=== PATIENT | female | born 1975 | race Caucasian/White ===

== ENCOUNTER 2023-11-08 17:02 | Emergency (ER) | payer MEDICAID ==
[~2023-11-08] VITALS: Ht 172.7 cm; Wt 77.0 kg
[2023-11-08 17:15] VITALS: TEMP 98.8; O2SAT 99
[2023-11-08 18:03] LABS: BASOPHILS % 0.6 % (0.0-2.0); EOSINOPHILS % 3.4 % (0.0-5.0); HEMATOCRIT. 35.7 % (36.0-48.0); HEMOGLOBIN. 12.2 g/dL (12.0-16.0); LYMPHOCYTES % 32.7 % (20.0-50.0); MEAN CORPUSCULAR HEMOGLOBIN 31.3 pg (28.0-32.0); MEAN CORPUSCULAR HGB CONC 34.3 g/dL (31.0-37.0); MEAN CORPUSCULAR VOLUME 91.3 fL (81.0-99.0); MEAN PLATELET VOLUME 6.8 fl (7.4-10.4); MONOCYTES % 8.2 % (2.0-8.0); NEUTROPHILS % 55.1 % (40.0-76.0); PLATELET 346 x1000/uL (130-400); RED CELL DISTRIBUTION WIDTH 13.8 % (11.6-14.6); WHITE BLOOD COUNT 5.5 x1000/uL (4.5-11.0)
[2023-11-08 18:13] LABS: CHLORIDE 105 mEq/L (98-107); POTASSIUM 3.7 mEq/L (3.5-5.1); SODIUM 139 mEq/L (136-145)
[2023-11-08 18:15] LABS: CALCIUM 9.1 mg/dL (8.7-10.4); CARBON DIOXIDE 25 mEq/L (21-32)
[2023-11-08 18:19] LABS: HCG SCREEN NEGATIVE
[2023-11-08 18:20] LABS: CREATININE 0.8 mg/dL (0.6-1.0); GLUCOSE 73 mg/dL (70-105); UREA NITROGEN BLOOD 6 mg/dL (9-23)
[2023-11-08 18:22] LABS: ALANINE AMINOTRANSFERASE 11 IU/L (10-49); ALBUMIN 4.3 g/dL (3.2-4.8); ASPARTATE AMINOTRANSFERASE 15 IU/L (<34); BILIRUBIN TOTAL 0.2 mg/dL (0.1-1.0); PROTEIN TOTAL 6.6 g/dL (6.0-8.3)
[2023-11-08 18:24] LABS: BILIRUBIN DIRECT < 0.1 mg/dL (<=3.0)
[2023-11-08 19:43] LABS: TROPONIN I HIGH SENSITIVITY < 4 ng/L (3.0-34)
[2023-11-08] MEDS: ONDANSETRON HCL 4MG/2ML INJ IV STA (19:50)
[2023-11-08] MEDS: KETOROLAC 15MG/ML VIAL IV ONE (19:50)
[2023-11-08] MEDS: SODIUM CHLORIDE 0.9% 1,000 ML IV ONE (19:50)
[2023-11-08] MEDS: PANTOPRAZOLE SODIUM 40 MG/VIAL IV ONE (19:50)
[2023-11-08 19:52] LABS: INR 0.9; PARTIAL THROMBOPLASTIN TIME 25.8 sec (23.4-31.0); PROTHROMBIN TIME 10.1 sec (9.6-11.0)
[2023-11-08 19:57] LABS: CLARITY URINE CLEAR (CLEAR); COLOR URINE YELLOW (YELLOW); GLUCOSE URINE NEGATIVE (NEGATIVE); KETONES URINE TRACE (NEGATIVE); LEUKOCYTE ESTERASE URINE TRACE (NEGATIVE); NITRITE URINE NEGATIVE (NEGATIVE); OCCULT BLOOD URINE NEGATIVE (NEGATIVE); PH URINE 6.5 (4.5-8.0); PROTEIN URINE NEGATIVE (NEGATIVE); SPECIFIC GRAVITY URINE 1.023 (1.005-1.030)
[2023-11-08] MEDS: DIPHENHYDRAMINE 50MG/ML VIAL IV ONE (20:07)
[2023-11-08 20:08] VITALS: BP 115/65; PULSE 101; RESP 25
[2023-11-08 20:43] LABS: BACTERIA URINE 2+; RBC URINE NONE SEEN /hpf (0-2); SQUAMOUS EPITHELIAL CELL URINE 1+ /lpf (RARE/1+); WBC URINE 0-2 /hpf (0-2)
[2023-11-08 20:44] LABS: MUCUS URINE 2+ /lpf (< = 2+)
[2023-11-08] MEDS ORDERED: NITR-87 MT (20:47)
[2023-11-08] MEDS ORDERED: ONDA4TAB11 PO (20:47)
[2023-11-08] MEDS ORDERED: TOPUD MT (20:47)
[2023-11-08] MEDS ORDERED: DIPH25CA83 PO (20:50)
[2023-11-08] MEDS: DIPHENHYDRAMINE 25MG CAPSULE PO ONE (21:03)
== END 2023-11-08 21:14 | disposition home or self-care (01) ==
LOC: ER 17:02
DX: R10.32 Left lower quadrant pain (principal); J45.909 Unspecified asthma, uncomplicated; Z88.6 Allergy status to analgesic agent; Z88.5 Allergy status to narcotic agent
CPT/HCPCS: 80076; 80048; 81003; 84703; 83690; 85025; 85610; 85730; 84484; 36415; 71045; 74176; 93005; 96365; 96375; 99285; Q0163; J1200; J1885; J2405; C9113; J7030; Z7610 ×2

== ENCOUNTER 2023-11-17 14:40 | Emergency (ER) | payer OTHER ==
[~2023-11-17] VITALS: Ht 167.6 cm; Wt 66.0 kg
[~2023-11-17 14:40] MED LIST: DIPH25CA83 PO; NITR-87 MT; ONDA4TAB11 PO; TOPUD MT
[2023-11-17 14:44] VITALS: O2SAT 98
[2023-11-17 15:06] VITALS: TEMP 98
[2023-11-17] MEDS: EPINEPHRINE 1:1000 1 MG/ML AMP SUBCUT ONE (15:12)
[2023-11-17] MEDS: METHYLPREDNISOLONE SOD SUCC 125MG/2ML (ACT-O-VIAL) IV ONE (15:14)
[2023-11-17] MEDS: FAMOTIDINE 20MG/2ML VIAL IV ONE (15:14)
[2023-11-17 16:18] LABS: HCG SCREEN NEGATIVE
[2023-11-17] MEDS ORDERED: DIPHENHYDRAMINE 25MG CAPSULE PO ONE (17:30)
[2023-11-17 17:34] VITALS: BP 112/64; PULSE 83; RESP 16
== END 2023-11-17 17:35 | disposition left against medical advice (07) ==
LOC: ER 14:40
DX: T78.2XXA Anaphylactic shock, unspecified, initial encounter (principal); J45.909 Unspecified asthma, uncomplicated; F31.9 Bipolar disorder, unspecified; Z79.899 Other long term (current) drug therapy; X58.XXXA Exposure to other specified factors, initial encounter
CPT/HCPCS: 84703; 96372; 96374; 96375; 99284; J3490 ×2; J2919; Z7610

== ENCOUNTER 2023-11-24 09:37 | Emergency (ER) | payer OTHER ==
[~2023-11-24] VITALS: Ht 170.2 cm; Wt 74.0 kg
[2023-11-24 09:42] VITALS: O2SAT 99
[2023-11-24] MEDS: KETOROLAC 15MG/ML VIAL IV ONE ×2 (10:51→14:31)
[2023-11-24 10:54] LABS: BASOPHILS % 0.2 % (0.0-2.0); EOSINOPHILS % 0.7 % (0.0-5.0); HEMATOCRIT. 35.9 % (36.0-48.0); HEMOGLOBIN. 12.2 g/dL (12.0-16.0); LYMPHOCYTES % 7.1 % (20.0-50.0); MEAN CORPUSCULAR HGB CONC 33.9 g/dL (31.0-37.0); MEAN CORPUSCULAR VOLUME 91.4 fL (81.0-99.0); MEAN PLATELET VOLUME 6.9 fl (7.4-10.4); MONOCYTES % 4.6 % (2.0-8.0); NEUTROPHILS % 87.4 % (40.0-76.0); PLATELET 303 x1000/uL (130-400); RED BLOOD CELL COUNT 3.93 mill/uL (4.2-5.4); RED CELL DISTRIBUTION WIDTH 14.5 % (11.6-14.6); WHITE BLOOD COUNT 9.6 x1000/uL (4.5-11.0)
[2023-11-24 10:58] LABS: CLARITY URINE CLEAR (CLEAR); COLOR URINE YELLOW (YELLOW); GLUCOSE URINE NEGATIVE (NEGATIVE); KETONES URINE NEGATIVE (NEGATIVE); LEUKOCYTE ESTERASE URINE NEGATIVE (NEGATIVE); NITRITE URINE NEGATIVE (NEGATIVE); OCCULT BLOOD URINE TRACE (NEGATIVE); PH URINE 5.5 (4.5-8.0); PROTEIN URINE NEGATIVE (NEGATIVE); SPECIFIC GRAVITY URINE 1.006 (1.005-1.030); UROBILINOGEN URINE 0.2 E.U./dL (0.2-1.0)
[2023-11-24 11:00] LABS: CHLORIDE 104 mEq/L (98-107); HCG SCREEN NEGATIVE; SODIUM 137 mEq/L (136-145)
[2023-11-24 11:01] LABS: CALCIUM 9.1 mg/dL (8.7-10.4); CARBON DIOXIDE 26 mEq/L (21-32)
[2023-11-24 11:06] LABS: CREATININE 0.8 mg/dL (0.6-1.0); GLUCOSE 90 mg/dL (70-105); UREA NITROGEN BLOOD 13 mg/dL (9-23)
[2023-11-24 11:08] LABS: ALANINE AMINOTRANSFERASE 10 IU/L (10-49); ALBUMIN 4.3 g/dL (3.2-4.8); ASPARTATE AMINOTRANSFERASE 15 IU/L (<34); BACTERIA URINE FEW; BILIRUBIN DIRECT 0.1 mg/dL (<=3.0); RBC URINE 0-2 /hpf (0-2); SQUAMOUS EPITHELIAL CELL URINE 1+ /lpf (RARE/1+); YEAST URINE NONE SEEN
[2023-11-24 11:09] LABS: BILIRUBIN TOTAL 0.5 mg/dL (0.1-1.0); PROTEIN TOTAL 6.7 g/dL (6.0-8.3)
[2023-11-24] MEDS: ONDANSETRON HCL 4MG/2ML INJ IV ONE (11:35)
[2023-11-24] MEDS: DIPHENHYDRAMINE 50MG/ML VIAL IV ONE (11:55)
[2023-11-24 15:20] VITALS: BP 98/60; PULSE 54; RESP 16; TEMP 97.9
== END 2023-11-24 15:22 | disposition home or self-care (01) ==
LOC: ER 09:37
DX: R10.12 Left upper quadrant pain (principal); J45.909 Unspecified asthma, uncomplicated; Z88.6 Allergy status to analgesic agent; Z88.5 Allergy status to narcotic agent; Z98.890 Other specified postprocedural states
CPT/HCPCS: 80076; 80048; 81003; 84703; 85025; 36415; 74176; 96374; 96375; 99285; J1200; J1885; J2405; Z7610 ×4

== ENCOUNTER 2023-11-30 00:22 | Emergency (ER) | payer OTHER ==
[~2023-11-30] VITALS: Ht 165.1 cm; Wt 80.0 kg
[2023-11-30 00:23] VITALS: O2SAT 99
[2023-11-30] MEDS ORDERED: IPRATROPIUM BROMIDE (0.02%) 0.5MG/2.5ML NEB HHN STA (00:23)
[2023-11-30] MEDS: METHYLPREDNISOLONE SOD SUCC 125MG/2ML (ACT-O-VIAL) IV STA (01:06)
[2023-11-30] MEDS: MAGNESIUM 1 G PREMIX 100 ML IV ONE (01:08)
[2023-11-30 01:23] LABS: BASOPHILS % 1.2 % (0.0-2.0); EOSINOPHILS % 3.1 % (0.0-5.0); HEMATOCRIT. 34.9 % (36.0-48.0); HEMOGLOBIN. 11.9 g/dL (12.0-16.0); LYMPHOCYTES % 27.2 % (20.0-50.0); MEAN CORPUSCULAR HEMOGLOBIN 30.7 pg (28.0-32.0); MEAN CORPUSCULAR HGB CONC 34.1 g/dL (31.0-37.0); MEAN PLATELET VOLUME 6.8 fl (7.4-10.4); MONOCYTES % 8.6 % (2.0-8.0); NEUTROPHILS % 59.9 % (40.0-76.0); PLATELET 307 x1000/uL (130-400); RED BLOOD CELL COUNT 3.88 mill/uL (4.2-5.4); RED CELL DISTRIBUTION WIDTH 14.7 % (11.6-14.6); WHITE BLOOD COUNT 8.1 x1000/uL (4.5-11.0)
[2023-11-30] MEDS: DIPHENHYDRAMINE 25MG CAPSULE PO NR (01:30)
[2023-11-30 01:31] LABS: PARTIAL THROMBOPLASTIN TIME 27.6 sec (23.4-31.0); PROTHROMBIN TIME 10.8 sec (9.6-11.0)
[2023-11-30 01:33] LABS: CHLORIDE 101 mEq/L (98-107); POTASSIUM 3.4 mEq/L (3.5-5.1); SODIUM 133 mEq/L (136-145)
[2023-11-30 01:34] LABS: CALCIUM 8.9 mg/dL (8.7-10.4); CARBON DIOXIDE 23 mEq/L (21-32)
[2023-11-30 01:36] LABS: HCG SCREEN NEGATIVE
[2023-11-30 01:39] LABS: CREATININE 0.9 mg/dL (0.6-1.0); GLUCOSE 93 mg/dL (70-105); UREA NITROGEN BLOOD 12 mg/dL (9-23)
[2023-11-30 01:44] LABS: ETHANOL BLOOD < 10 mg/dL (<10); TROPONIN I HIGH SENSITIVITY < 4 ng/L (3.0-34)
[2023-11-30 02:00] LABS: *AMPHETAMINES SCREEN URINE PRESUMPTIVE POSITIVE (NEGATIVE); *BARBITURATES SCREEN URINE NEGATIVE (NEGATIVE)
[2023-11-30 02:01] LABS: *COCAINE SCREEN URINE NEGATIVE (NEGATIVE); ECSTASY MDMA SCREEN URINE NEGATIVE (NEGATIVE); METHADONE URINE SCREEN NEGATIVE (NEGATIVE); OPIATES URINE SCREEN NEGATIVE (NEGATIVE); PHENCYCLIDINE URINE SCREEN NEGATIVE (NEGATIVE)
[2023-11-30] MEDS ORDERED: ALBU6.7H15 INH (02:49)
[2023-11-30] MEDS ORDERED: P20 MT (02:49)
[2023-11-30 03:15] VITALS: BP 110/80; PULSE 76; RESP 16; TEMP 98.4
== END 2023-11-30 03:51 | disposition home or self-care (01) ==
LOC: ER 00:32
DX: J44.89 Other specified chronic obstructive pulmonary disease (principal); F15.90 Other stimulant use, unspecified, uncomplicated; F41.9 Anxiety disorder, unspecified; J45.909 Unspecified asthma, uncomplicated; Z00.00 Encounter for general adult medical examination without abnormal findings; Z88.6 Allergy status to analgesic agent; Z88.5 Allergy status to narcotic agent; Z98.890 Other specified postprocedural states
CPT/HCPCS: 80305; 80048; 80320; 84703; 83880; 85025; 85610; 85730; 84484; 36415; 71045; 93005; 96365; 96375; 99285; Q0163; J3475; J2919; G0480

== ENCOUNTER 2023-12-22 12:32 | Emergency (ER) | payer OTHER ==
[~2023-12-22] VITALS: Ht 172.7 cm; Wt 86.0 kg
[~2023-12-22 12:32] MED LIST changes: +ALBU6.7H15 INH; +P20 MT
[2023-12-22 12:34] VITALS: O2SAT 97
[2023-12-22] MEDS: KETOROLAC 30MG/ML VIAL IV ONE (12:54)
[2023-12-22] MEDS: ONDANSETRON HCL 4MG/2ML INJ IV ONE (12:54)
[2023-12-22 12:58] VITALS: TEMP 97.8
[2023-12-22 12:59] LABS: BASOPHILS % 0.7 % (0.0-2.0); EOSINOPHILS % 2.7 % (0.0-5.0); HEMATOCRIT. 35.3 % (36.0-48.0); HEMOGLOBIN. 11.8 g/dL (12.0-16.0); LYMPHOCYTES % 25.6 % (20.0-50.0); MEAN CORPUSCULAR HEMOGLOBIN 30.6 pg (28.0-32.0); MEAN CORPUSCULAR HGB CONC 33.6 g/dL (31.0-37.0); MEAN CORPUSCULAR VOLUME 91.1 fL (81.0-99.0); MEAN PLATELET VOLUME 6.8 fl (7.4-10.4); PLATELET 269 x1000/uL (130-400); RED BLOOD CELL COUNT 3.88 mill/uL (4.2-5.4); RED CELL DISTRIBUTION WIDTH 14.6 % (11.6-14.6); WHITE BLOOD COUNT 5.6 x1000/uL (4.5-11.0)
[2023-12-22 13:11] LABS: CHLORIDE 104 mEq/L (98-107); POTASSIUM 4.2 mEq/L (3.5-5.1); SODIUM 136 mEq/L (136-145)
[2023-12-22 13:12] LABS: CALCIUM 9.2 mg/dL (8.7-10.4); CARBON DIOXIDE 27 mEq/L (21-32)
[2023-12-22 13:17] LABS: CREATININE 0.7 mg/dL (0.6-1.0); GLUCOSE 76 mg/dL (70-105)
[2023-12-22 13:18] LABS: UREA NITROGEN BLOOD 5 mg/dL (9-23)
[2023-12-22] MEDS: DIPHENHYDRAMINE 50MG/ML VIAL IV ONE ×2 (13:23→14:19)
[2023-12-22 13:27] LABS: TROPONIN I HIGH SENSITIVITY < 4 ng/L (3.0-34)
[2023-12-22 13:42] LABS: HCG SCREEN NEGATIVE
[2023-12-22 14:20] VITALS: BP 109/68; PULSE 75; RESP 16
[2023-12-22] MEDS: HYDROMORPHONE HCL/PF 2MG/ML INJ IV ONE (14:20)
[2023-12-22] MEDS ORDERED: LIDO1ADH23 TP (14:52)
== END 2023-12-22 15:34 | disposition home or self-care (01) ==
LOC: ER 12:32
DX: M47.817 Spondylosis without myelopathy or radiculopathy, lumbosacral region (principal); M54.50 Low back pain, unspecified; J45.909 Unspecified asthma, uncomplicated; F31.9 Bipolar disorder, unspecified; Z98.890 Other specified postprocedural states; Z88.6 Allergy status to analgesic agent; Z88.8 Allergy status to other drugs, medicaments and biological substances
CPT/HCPCS: 80048; 84703; 83880; 85025; 84484; 36415; 71045; 72131; 96374; 96375; 96376; 99285; J1200; J1885; J2405; J1170; Z7610 ×4

== ENCOUNTER 2023-12-29 10:02 | Emergency (ER) | payer OTHER ==
[~2023-12-29] VITALS: Ht 162.6 cm; Wt 68.0 kg
[~2023-12-29 10:02] MED LIST changes: +LIDO1ADH23 TP
[2023-12-29 10:27] VITALS: PULSE 83; RESP 18; O2SAT 99
[2023-12-29] MEDS: IPRATROPIUM BROMIDE (0.02%) 0.5MG/2.5ML NEB HHN STA (10:27)
[2023-12-29] MEDS: ALBUTEROL (0.083%) 2.5MG/3ML NEB HHN STA (10:27)
[2023-12-29 11:05] LABS: BASOPHILS % 0.6 % (0.0-2.0); HEMATOCRIT. 38.8 % (36.0-48.0); HEMOGLOBIN. 13.1 g/dL (12.0-16.0); LYMPHOCYTES % 30.6 % (20.0-50.0); MEAN CORPUSCULAR HEMOGLOBIN 31.2 pg (28.0-32.0); MEAN CORPUSCULAR HGB CONC 33.7 g/dL (31.0-37.0); MEAN CORPUSCULAR VOLUME 92.8 fL (81.0-99.0); MEAN PLATELET VOLUME 6.7 fl (7.4-10.4); MONOCYTES % 8.4 % (2.0-8.0); NEUTROPHILS % 57.4 % (40.0-76.0); PLATELET 326 x1000/uL (130-400); RED BLOOD CELL COUNT 4.18 mill/uL (4.2-5.4); RED CELL DISTRIBUTION WIDTH 15.1 % (11.6-14.6); WHITE BLOOD COUNT 4.4 x1000/uL (4.5-11.0)
[2023-12-29 11:12] LABS: CHLORIDE 109 mEq/L (98-107); SODIUM 141 mEq/L (136-145)
[2023-12-29 11:13] LABS: CALCIUM 9.4 mg/dL (8.7-10.4); CARBON DIOXIDE 23 mEq/L (21-32)
[2023-12-29 11:18] LABS: CREATININE 0.7 mg/dL (0.6-1.0); GLUCOSE 89 mg/dL (70-105); UREA NITROGEN BLOOD 9 mg/dL (9-23)
[2023-12-29 11:21] LABS: TROPONIN I HIGH SENSITIVITY < 4 ng/L (3.0-34)
[2023-12-29] MEDS: ACETAMINOPHEN 325MG TABLET PO ONE (12:44)
[2023-12-29 13:53] VITALS: BP 104/70; PULSE 68; RESP 18; TEMP 98.6
== END 2023-12-29 14:02 | disposition short-term general hospital (02) ==
LOC: ER 10:13 → CANBEDREQ 11:30 → ER 14:02
DX: J45.901 Unspecified asthma with (acute) exacerbation (principal); F31.9 Bipolar disorder, unspecified; Z88.6 Allergy status to analgesic agent; Z88.5 Allergy status to narcotic agent; Z98.890 Other specified postprocedural states
CPT/HCPCS: 80048; 83880; 85025; 84484; 36415; 71045; 94640; 93005; 99285; Z7610 ×5

== ENCOUNTER 2024-01-01 18:07 | Emergency (ER) | payer OTHER ==
[~2024-01-01] VITALS: Ht 170.2 cm; Wt 74.0 kg
[2024-01-01 18:08] VITALS: O2SAT 99
[2024-01-01 21:55] VITALS: PULSE 60; RESP 18
[2024-01-01] MEDS: IPRATROPIUM BROMIDE (0.02%) 0.5MG/2.5ML NEB HHN STA (21:55)
[2024-01-01] MEDS: METHYLPREDNISOLONE SOD SUCC 125MG/2ML (ACT-O-VIAL) IV STA (22:01)
[2024-01-01] MEDS: HYDROMORPHONE HCL/PF 2MG/ML INJ IV ONE (22:24)
[2024-01-01 22:25] VITALS: PULSE 60; RESP 18
[2024-01-01] MEDS: ALBUTEROL (0.083%) 2.5MG/3ML NEB HHN SCH (22:25)
[2024-01-01] MEDS: KETOROLAC 30MG/ML VIAL IV STA (22:38)
[2024-01-01 22:55] VITALS: PULSE 60; RESP 18
[2024-01-01 23:25] VITALS: PULSE 60; RESP 18
[2024-01-01 23:37] LABS: BASOPHILS % 0.3 % (0.0-2.0); EOSINOPHILS % 0.5 % (0.0-5.0); HEMATOCRIT. 41.3 % (36.0-48.0); HEMOGLOBIN. 13.8 g/dL (12.0-16.0); MEAN CORPUSCULAR HEMOGLOBIN 31.1 pg (28.0-32.0); MEAN CORPUSCULAR HGB CONC 33.3 g/dL (31.0-37.0); MEAN CORPUSCULAR VOLUME 93.3 fL (81.0-99.0); MEAN PLATELET VOLUME 7.1 fl (7.4-10.4); MONOCYTES % 3.9 % (2.0-8.0); NEUTROPHILS % 75.3 % (40.0-76.0); PLATELET 296 x1000/uL (130-400); RED BLOOD CELL COUNT 4.43 mill/uL (4.2-5.4); RED CELL DISTRIBUTION WIDTH 15.1 % (11.6-14.6); WHITE BLOOD COUNT 7.8 x1000/uL (4.5-11.0)
[2024-01-01 23:50] LABS: CHLORIDE 106 mEq/L (98-107); POTASSIUM 3.4 mEq/L (3.5-5.1); SODIUM 141 mEq/L (136-145)
[2024-01-01 23:51] LABS: CARBON DIOXIDE 24 mEq/L (21-32)
[2024-01-01 23:52] LABS: CALCIUM 9.5 mg/dL (8.7-10.4)
[2024-01-01 23:56] LABS: GLUCOSE 102 mg/dL (70-105)
[2024-01-01 23:57] LABS: UREA NITROGEN BLOOD 13 mg/dL (9-23)
[2024-01-02 00:02] LABS: TROPONIN I HIGH SENSITIVITY < 4 ng/L (3.0-34)
[2024-01-02] MEDS: HYDROMORPHONE HCL/PF 2MG/ML INJ IV ONE (00:04)
[2024-01-02 00:08] LABS: HCG SCREEN NEGATIVE
[2024-01-02] MEDS: DIPHENHYDRAMINE 25MG CAPSULE PO ONE (01:56)
[2024-01-02 02:10] VITALS: BP 114/72; PULSE 83; RESP 18; TEMP 98.8
== END 2024-01-02 02:15 | disposition short-term general hospital (02) ==
LOC: ER 18:07
DX: R07.89 Other chest pain (principal); J45.909 Unspecified asthma, uncomplicated; F31.9 Bipolar disorder, unspecified; Z79.899 Other long term (current) drug therapy
CPT/HCPCS: 80048; 84703; 83880; 85025; 84484; 36415; 71045; 94640; 93005; 96374; 96375; 99285; 96376; J1885; J2919; J1170; Z7610 ×3; Q0163